=== PATIENT | male | born 1995 | race Two or more races ===

== ENCOUNTER 2021-08-27 23:07 | Emergency (ER) | payer OTHER ==
[~2021-08-27] VITALS: Ht 177.8 cm; Wt 86.2 kg
[2021-08-28] MEDS ORDERED: DOLOGESIC-DF 51 EACH PO (03:28)
[2021-08-28] MEDS ORDERED: ZYNCOF 20-400120 ML PO (03:28)
== END 2021-08-28 04:02 ==
LOC: ER 23:07
DX: U07.1 COVID-19 (principal); Z88.8 Allergy status to other drugs, medicaments and biological substances; Z91.018 Allergy to other foods

== ENCOUNTER 2023-02-23 01:46 | Emergency (ER) | payer OTHER ==
[~2023-02-23] VITALS: Ht 172.7 cm; Wt 83.9 kg
[~2023-02-23 01:46] MED LIST: DOLOGESIC-DF 51 EACH PO; ZYNCOF 20-400120 ML PO
== END 2023-02-23 04:56 | disposition home or self-care (01) ==
LOC: ER 01:46
DX: S61.411A Laceration without foreign body of right hand, initial encounter (principal); X58.XXXA Exposure to other specified factors, initial encounter; Y93.9 Activity, unspecified; Y92.9 Unspecified place or not applicable; Y99.9 Unspecified external cause status

== ENCOUNTER → 2023-03-07 | Emergency (ER) | payer OTHER ==
[~2023-03-07] VITALS: Ht 177.8 cm; Wt 90.7 kg
== END | disposition home or self-care (01) ==
LOC: ER 00:16
DX: Z48.02 Encounter for removal of sutures (principal)